=== PATIENT | female | born 1985 | race Caucasian/White ===

== ENCOUNTER 2022-03-23 10:09 | Emergency (ER) | payer OTHER, SELFPAY ==
--- NOTE | ~2022-03-23 | US_ITS ---
EXAMINATION: US VENOUS ULTRASOUND WITH DOPPLER LOWER EXTREMITY, RIGHT CLINICAL INFORMATION: Right calf pain. COMPARISON: None TECHNIQUE: Ultrasound of the deep veins is performed from the hip to the calf with compression sonography and color and pulse Doppler assessment. Spectral analysis with color-flow imaging is performed. FINDINGS: There is normal venous compression and respiratory variation and augmented flow. The visualized common femoral vein, superficial femoral vein, profunda femoral vein, popliteal vein, and the trifurcation region shows no evidence of deep venous thrombosis. No right popliteal cyst. The subcutaneous soft tissues are unremarkable. If the patient's symptoms persist, followup ultrasound in 5 days 7 days might be of value to exclude proximal propagation from a non-visualized calf vein. US/US venous duplex LE RT IMPRESSION: No DVT demonstrated in the right lower extremity.
[2022-03-23 10:18] VITALS: BP 93/71; PULSE 86; RESP 18; TEMP 36.8; O2SAT 98; BMI 27.3
--- NOTE | 2022-03-23 10:21 | ECG_ITS ---
Test Reason : leg pain Blood Pressure : / mmHG Vent. Rate : 086 BPM Atrial Rate : 086 BPM P-R Int : 138 ms QRS Dur : 080 ms QT Int : 372 ms P-R-T Axes : 073 089 075 degrees QTc Int : 445 ms Artifact in tracing Normal sinus rhythm with sinus arrhythmia Normal ECG No previous ECGs available Referred By: Generic ED Physician Electronically Signed By:MARIELENA SOMMERS
[2022-03-23 10:36] LABS: MANUAL DIFF FLAG NO
--- NOTE | 2022-03-23 10:39 | ED.EXTPRO ---
HPI - Extremity Problem General Chief complaint: Extremity Problem Stated complaint: r leg pain Time Seen by Provider: 03/23/22 10:23 Source: patient Mode of arrival: ambulatory Limitations: no limitations History of Present Illness HPI Narrative: 36 y/o female with history of untreated Rheumatoid arthritis, ADHD, depression who presents to the ER with acute onset of nontraumatic right calf pain that started yesterday afternoon. She denies any injury or strenuous activity yesterday. She reports the pain is in the lower right calf and radiates up her leg. She wore a compression stocking and elevated her leg last night. It started mild and worsened today when she got up. She has a hard time walking because of the pain. She denies any swelling, warmth or redness. She reports her father has a history of DVT's. She denies any chest pain or SOB. She is anxious. MD Complaint: extremity pain Onset (ago): day(s) (1) Pain Consistency: constant Location: right and lower extremity Severity scale (1-10): 6 Quality: aching Radiation: proximal Relieving factors: immobilization and elevation Associated symptoms: denies other symptoms Related Data Allergies Allergy/AdvReac Type Severity Reaction Status Date / Time No Known Allergies Allergy Verified 03/23/22 10:20 Review of Systems Review of Systems: Constitutional: No Fever, No Chills ENT/Mouth: No sore throat, No Rhinorrhea, No Swallowing Difficulty Cardiovascular: No Chest Pain, No SOB, No Orthopnea, No Edema Respiratory: No Cough, No Sputum, No Wheezing, No dyspnea Gastrointestinal: No Nausea, No Vomiting, No Diarrhea, No abdominal Pain, No Hematochezia, No Melena Genitourinary: No Dysuria, No Urinary Frequency, No Hematuria Musculoskeletal: + joint pain, +Myalgias Skin: No Skin Lesions, No rash Neuro: No Weakness, No Numbness, No Dizziness, No Headache Psych: + Anxiety/Panic, No Depression Heme/Lymph: No Bruising, No Lymphadenopathy Endocrine: No Polyuria, No Polydipsia PMFSH Social History Social History Advance Directives: No Advance Directives Information Provided: No Physical Exam Vital Signs: Vital Signs: Last Vital Signs Temp 98.4 F 03/23/22 12:21 Pulse 66 03/23/22 12:21 Resp 14 03/23/22 12:21 BP 115/47 L 03/23/22 12:21 Pulse Ox 100 03/23/22 12:21 BMI result Body Mass Index 27.3 Appearance: Alert. Oriented X3. No acute distress. HEENT: normal inspection CVS: Normal heart rate and rhythm. Pulses normal. Respiratory: No respiratory distress. Skin: Skin warm and dry. Normal skin color. Normal skin turgor. No rashes. Extremities: normal inspection of the bilateral lower extremities, no edema, warmth or erythema. +right calf tenderness in the lateral and distal portions. legs are warm and well perfused, +DP/PD pulses bilaterally Neuro: Oriented X 3. No motor deficit. No sensory deficit. Antalgic gait Course Course Course Narrative: 36-year-old female presents to the ER with 1 day of nontraumatic right calf pain. Positive family history for DVTs. Perc negative. Soft tissue tenderness of the lateral aspect of the right calf without any other concerning physical exam findings. Ultrasound and blood work are pending. Reevaluation(s) Reevaluation #1: D-dimer is negative. Ultrasound does not show any evidence of DVT. She is stable for discharge home with supportive care. Given information for PCPs in the area. MDM - Extremity (Nontraumatic) Lab Data Result diagrams: 03/23/22 10:30 03/23/22 10:30 Labs: Lab Results 03/23/22 03/23/22 03/23/22 Range/Units 10:30 10:30 10:30 WBC 4.8 (4.8-10.8) X10*3/uL RBC 3.85 L (4.20-5.50) X10*6/uL Hgb 10.8 L (12.0-16.0) g/dl Hct 33.6 L (37.0-47.0) % MCV 87.3 (80.0-98.0) fL MCH 28.1 (27.0-33.0) pg MCHC 32.1 (31.0-35.0) g/dl RDW 15.1 (11.0-16.0) % Plt Count 223 (160-400) X10*3/uL MPV 11.5 (9.4-12.3) fL Immature Gran % (Auto) 0.2 (0.0-0.4) % Neut % (Auto) 45.6 (45-73) % Lymph % (Auto) 34.2 (20-40) % Amelia % (Auto) 12.4 H (2-11) % Eos % (Auto) 6.2 H (0-4) % Baso % (Auto) 1.4 (0-2) % Lymph # (Auto) 1.7 (1.2-4.9) X10*3/uL Amelia # (Auto) 0.6 (0.1-1.2) X10*3/uL Eos # (Auto) 0.3 (0.0-0.4) X10*3/uL Baso # (Auto) 0.1 (0.0-0.2) X10*3/uL Abs Immat Gran (auto) 0.01 (0.00-0.03) X10*3/uL Absolute Neuts (auto) 2.2 (2.0-8.3) x10*3/uL Absolute Nucleated RBC 0.000 (0.0-0.012) X10*3/uL Nucleated RBC % (auto) 0.0 (0.0-0.2) /100WBC D-Dimer High Sensitivty < 150 NG/ML Sodium 138 (135-145) mmol/L Potassium 4.0 (3.3-5.1) mmol/L Chloride 107 (96-108) mmol/L Carbon Dioxide 23 (22-29) mmol/L Anion Gap 12 (12-20) BUN 9 (9-16) mg/dL Creatinine 0.75 (0.5-1.4) mg/dL Estim Creat Clear Calc 117.6 Estimated GFR > 60 Random Glucose 88 (60-115) mg/dL Calcium 9.0 (8.4-10.2) mg/dL ECG Data Attestation EKG: I personally reviewed and interpreted this ECG as follows: ECG interpretation date: 03/23/22 ECG interpretation time: 13:01 Prior ECG tracings: not available for review Interpretation: Normal sinus rhythm with sinus arrhythmia, ventricular rate 86 beats per minute, normal IL interval, normal QTC, no ST segment elevations or depressions. Critical Care Time Critical Care Time Critical Care Time: No Discharge Plan Discharge Clinical Impression: Pain of right calf Patient Disposition: Home, Self-Care Instructions: Leg Pain (ED) Additional Instructions: Your lab workup today was unremarkable. Your ultrasound did not show any blood clots. Recommend trial of ibuprofen 6 her mg every 8 hours around the clock in addition to rest, ice, elevation. If you develop new or worsening symptoms call 911 or come back to the ER for further evaluation.
[2022-03-23 10:40] LABS: Basophils Absolute Auto 0.1 X10*3/uL (0.0-0.2); Basophils Percent Auto 1.4 % (0-2); Eosinophils Absolute Auto 0.3 X10*3/uL (0.0-0.4); Eosinophils Percent Auto 6.2 % (0-4); Hematocrit 33.6 % (37.0-47.0); Hemoglobin 10.8 g/dl (12.0-16.0); Imm Gran Abs Auto 0.01 X10*3/uL (0.00-0.03); Imm Gran Pct Auto 0.2 % (0.0-0.4); Lymphocytes Absolute Auto 1.7 X10*3/uL (1.2-4.9); Lymphocytes Percent Auto 34.2 % (20-40); Mean Corpuscular HGB Conc 32.1 g/dl (31.0-35.0); Mean Corpuscular Hemoglobin 28.1 pg (27.0-33.0); Mean Corpuscular Volume 87.3 fL (80.0-98.0); Mean Platelet Volume 11.5 fL (9.4-12.3); Monocytes Absolute Auto 0.6 X10*3/uL (0.1-1.2); Monocytes Percent Auto 12.4 % (2-11); Neutrophils Absolute Auto 2.2 x10*3/uL (2.0-8.3); Neutrophils Percent Auto 45.6 % (45-73); Platelet Count 223 X10*3/uL (160-400); Red Blood Count 3.85 X10*6/uL (4.20-5.50); Red Cell Distribution Width 15.1 % (11.0-16.0); White Blood Count 4.8 X10*3/uL (4.8-10.8)
[2022-03-23 10:49] LABS: D Dimer High Sensitivity < 150 NG/ML
[2022-03-23 10:54] LABS: Anion Gap 12 (12-20); Blood Urea Nitrogen 9 mg/dL (9-16); Carbon Dioxide 23 mmol/L (22-29); Chloride 107 mmol/L (96-108); Creatinine Clr Calc Pharmacy 117.6; Estimated Glomerular Filt Rate > 60; Glucose Random 88 mg/dL (60-115); Sodium 138 mmol/L (135-145)
--- NOTE | 2022-03-23 11:50 | PC.NURSE ---
US at bedside at this time.
[2022-03-23 12:21] VITALS: BP 115/47; PULSE 66; RESP 14; TEMP 36.9; O2SAT 100
== END 2022-03-23 13:08 | disposition home or self-care (01) ==
PROVIDERS: Emergency Provider Emergency Medicine
DX: M79.604 Pain in right leg (principal); M79.661 Pain in right lower leg
CPT/HCPCS: 36415; 80048; 85025; 85379; 93005; 93971; 99284

== ENCOUNTER 2025-04-09 18:12 | Emergency (ER) | payer OTHER, SELFPAY ==
[2025-04-09 19:27] VITALS: BP 128/54; PULSE 74; RESP 16; TEMP 36.7; O2SAT 100; BMI 31.4
--- NOTE | 2025-04-09 19:29 | ED.PSYCH ---
HPI - Psych General Chief Complaint: Psychiatric Symptoms Stated Complaint: crisis/ off meds anxious ptsd Time Seen by Provider: 04/09/25 20:12 Source: patient, family (, Parag Yip), RN notes reviewed and old records reviewed Mode of arrival: ambulatory Limitations: no limitations History of Present Illness ED Provider: Manny CHIN Narrative: 39-year-old female with a past medical history significant for anxiety presents for evaluation of increasing anxiety. Patient reports that she changed her med prescriber for her clonazepam from [facility] to [facility]. The patient with a attempting to voluntarily decrease her clonazepam dosing which is currently 1 mg TID. During this change, the new prescriber that she was assigned wanted to start her on short-acting lorazepam while she is decreasing her clonazepam. The pharmacy was unwilling to fill both prescriptions as they are both benzodiazepines and the patient feels as if she was not being adequately treated for her anxiety. She is currently out of the clonazepam and was unable to fill lorazepam. Her last dose was 2 days ago Apparently her prescriber is now on vacation and she was encouraged to go to the ER if she feels as if she is having withdrawal symptoms. The patient reports increasing anxiety and stressors due to the whole situation but denies any suicidal ideation No other complaints or concerns at this time Related Data Previous Rx's ?Medication ?Instructions ?Recorded clonazepam 1 mg tablet (Klonopin) 1 mg PO TID #42 tabs 04/09/25 Allergies Allergy/AdvReac Type Severity Reaction Status Date / Time No Known Allergies Allergy Verified 04/09/25 19:28 Review of Systems Constitutional: Constitutional: Denies body ache(s), Denies chills, Denies fever(s) and Denies headache(s) Eyes: Eyes: Denies blurry vision ENT: Denies dizziness, Denies dry mouth and Denies headache(s) Cardiovascular: Cardiovascular: Denies chest pain and Denies dyspnea on exertion Respiratory: Respiratory: Denies cough and Denies dyspnea on exertion Gastrointestinal: Gastrointestinal: Denies abdominal pain Musculoskeletal: Musculoskeletal: Denies back pain Integumentary/Breasts: Skin/Breast: Denies rash Neurologic: Denies dizziness and Denies headache(s) Psychiatric: Psychiatric: Reports anxiety, Denies depression, Denies hopelessness, Denies irritability, Denies mood swings, Reports panic attacks, Denies paranoia, Denies visual hallucinations, Denies homicidal ideation and Denies suicidal ideation [facility] Social History Social History (System 06/17/22 @ 17:05 by Zuleyma Golden) Advance Directives: No Advance Directives Information Provided: No Do you have a plan to hurt others: No Plan Physical Exam Vital Signs: Vital Signs: Last Vital Signs Temp 98.6 F 04/09/25 20:46 Pulse 80 04/09/25 20:46 Resp 16 04/09/25 20:46 BP 128/80 04/09/25 20:46 Pulse Ox 99 04/09/25 20:46 O2 Del Method Room Air 04/09/25 20:46 BMI result Body Mass Index 31.4 Const: General: healthy appearing, comfortable, no acute distress, alert and awake Nutritional Appearance: well nourished Orientation/consciousness: patient oriented x3 HEENT: Head: Yes normocephalic and Yes atraumatic Eyes: Eyelids: Yes eyelids normal Conjunctivae: conjunctivae normal Sclerae: sclerae normal Corneas: corneas normal Pupils: Equal, round and reactive pupils present EOM: EOMs intact bilaterally Neck: Neck: Yes full ROM Resp: Effort & Inspection: normal respiratory effort, able to speak in complete sentences and not labored Skin: General skin exam: elasticity normal Neuro: General: patient oriented x3 Cranial nerves: Yes Equal, round and reactive pupils present and Yes Bilaterally intact EOM present Cognition (Neuro): normal cognition Course Reevaluation(s) Reevaluation #1: RME: Ena Gill PA-C 04/09/2025: 737 pm, will defer full ROS and PE to treating provider Hx of PTSD, feels like her mental health has worsened. She has been out of touch with [facility] since March 05. Having depersonalization Has been off of medication for 1.5 days now. Not able to get refills. Feels crampy and very anxious looking for help. Will put in psych clearance work up and EKG. Medications Administered Discontinued Medications Generic Name Dose Route Start Last Admin Trade Name Freq PRN Reason Stop Dose Admin Clonazepam 1 mg 04/09/25 20:27 04/09/25 20:37 Clonazepam 1 Mg Tablet PO 04/09/25 20:28 1 mg ONCE ONE Administration Medical Decision Making Medical Decision Making MDM Narrative: 39-year-old female presents for evaluation of increasing anxiety. She had to use her symptoms due to medication and pharmacy issues she has been out of her clonazepam for the last 2 days. The patient is extremely anxious that she was brought back to the [facility]al pod. She is not depressed or suicidal. She is requesting a refill of her clonazepam until she can see her primary. Her next appointment is April 16. I discussed with the patient's has been and he confirms the patient's story and that there are no additional concerns, the patient has not made any suicidal comments. There does not appear to be any wrists with the patient or anybody else by discharging the patient and she will be discharged per her request. She does have outpatient follow-up I agreed to give her a 2 week course of her clonazepam 1 mg TID which she would hold her over until she can get her pharmacy situation sorted out with her primary doctor Differential Diagnosis Differential Diagnoses: The differential diagnosis associated with the presentation includes Anxiety Medication noncompliance Depression Benzodiazepine withdrawal Lab Data Labs: Lab Results 04/09/25 Range/Units 20:04 Urine Color Yellow Urine Appearance Cloudy Urine pH 6.0 (5.0-9.0) Ur Specific [place] 1.015 (1.005-1.025) Urine Protein Negative (Neg-Trace) mg/dL Urine Glucose (UA) Negative (Negative) mg/dL Urine Ketones Negative (Negative) mg/dL Urine Blood Negative (Negative) Urine Nitrite Negative (Negative) Ur Leukocyte Esterase Trace H (Negative) Urine RBC 0-2 (0-2) /HPF Urine WBC 6-10 H (0-5) /HPF Ur Squamous Epith Cells >20 (0-2) /HPF Urine Bacteria 1+ (None Seen) Hyaline Casts 0-2 (0-2) /LPF Urine Test NEGATIVE (NEGATIVE) Urine Opiates Screen Not Detected (Not Detect) Ur Buprenorphine Scrn Not Detected (Not Detect) ng/mL Ur Oxycodone Screen Not Detected (Not Detect) ng/mL Urine Methadone Screen Not Detected (Not Detect) ng/mL Urine Fentanyl Screen Not Detected (Not Detect) Ur Barbiturates Screen Not Detected (Not Detect) Ur Phencyclidine Scrn Not Detected (Not Detect) Ur Amphetamines Screen POSITIVE H (Not Detect) U Benzodiazepines Scrn Not Detected (Not Detect) Urine Cocaine Screen Not Detected (Not Detect) U Marijuana (THC) Screen Not Detected (Not Detect) Discharge Plan Discharge Clinical Impression: Anxiety Patient Disposition: Home, Self-Care Instructions: Anxiety (ED) Additional Instructions: Take your medications as prescribed. Follow-up with your primary doctor Return for new or worsening symptoms, especially if you have any thoughts of harming herself Prescriptions: New clonazepam [Klonopin] 1 mg tablet 1 mg PO TID Qty: 42 0RF Interventions: [place]-Suicide Risk Severity Scale Last Done: 04/09/25 20:42 ED Discharge Assessment Last Done: 04/09/25 20:46 Discharge Date/Time: 04/09/25 20:50 Print Language: Azerbaijani
--- NOTE | 2025-04-09 19:47 | PC.NURSE ---
Called [facility] in POD to given RN to RN report, all questions answered, patient currently being changed over by Betzaida oliver RN.
--- NOTE | 2025-04-09 19:53 | MHC.EDTECH ---
This tech went to look for patient do to EKG and blood work. Patient is currently changing over at the family room and then going to the pod. Orders will be completed there.
--- NOTE | 2025-04-09 19:56 | PC.NURSE ---
security handed me medications patient alleges are azoloft
--- NOTE | 2025-04-09 20:04 | PC.NURSE ---
new arrival asking to leave i no longer want a provider
--- NOTE | 2025-04-09 20:06 | PC.NURSE ---
preson repeating requests multiple times.
--- NOTE | 2025-04-09 20:10 | MHC.EDTECH ---
T/W ATTEMPTED TO GRAB BLOOD WORK AND EKG FROM PT, UNABLE TO OBTAIN PT IS REFUSING ALL TREATMENT. RN AWARE, PROVIDER AWARE
[2025-04-09 20:15] LABS: Appearance Urine Cloudy; Color Urine Yellow; Glucose Urine UA Negative (Negative); Leukocyte Esterase Urine Trace (Negative); Nitrite Urine Negative (Negative); Specific Gravity - Urine 1.015 (1.005-1.025); UMIC TRIGGER UACC YES; Urine Blood Negative (Negative); Urine Ketones Negative (Negative); Urine Protein Negative (Neg-Trace)
[2025-04-09 20:17] LABS: UPreg QC Valid YES; Urine Pregnancy NEGATIVE (NEGATIVE)
[2025-04-09 20:19] LABS: Bacteria Urine 1+ (None Seen); Hyaline Casts Urine 0-2 /LPF (0-2); RBC Urine 0-2 /HPF (0-2); Squamous Epithelial Cell Urine >20 /HPF (0-2); UACC Culture Trigger YES
[2025-04-09 20:22] LABS: Amphetamine Screen Urine POSITIVE (Not Detect); Barbiturates, Urine Not Detected (Not Detect); Benzodiazepines Screen Urine Not Detected (Not Detect); Buprenorphine Scr Not Detected (Not Detect); Cannabinoid Screen Urine Not Detected (Not Detect); Cocaine Screen Urine Not Detected (Not Detect); Fentanyl, urine Not Detected (Not Detect); Methadone Screen, Urine Not Detected (Not Detect); Opiate Screen Urine Not Detected (Not Detect); Oxycodone Screen Urine Not Detected (Not Detect); Phencyclidine Screen Urine Not Detected (Not Detect)
[2025-04-09] MEDS: clonazePAM 1 MG TABLET PO (20:37)
[2025-04-09 20:46] VITALS: BP 128/80; PULSE 80; RESP 16; TEMP 37; O2SAT 99
== END 2025-04-09 20:50 | disposition home or self-care (01) ==
PROVIDERS: Physician Assistant Medical; Emergency Provider Emergency Medicine
DX: F41.9 Anxiety disorder, unspecified (principal); Z79.899 Other long term (current) drug therapy
CPT/HCPCS: 80307; 81001; 81025; 87086; 99284